=== PATIENT | female | born 2000 | race Caucasian/White ===

== ENCOUNTER 2024-08-28 09:05 | Outpatient (CLI) | payer OTHER, SELFPAY ==
[2024-08-28 09:31] VITALS: BP 139/90; PULSE 83
[2024-08-28 09:38] LABS: Basophils Percent Auto 0.3 % (0.2-1.2); Eosinophils Absolute Auto 0.1 K/mm3 (0-0.3); Hematocrit 38.2 % (37.0-47.0); Hemoglobin 12.2 g/dL (12.0-15.0); Immature Granulocyte Absolute 0.07 K/mm3 (0.00-0.031); Immature Granulocyte Percent A 0.7 % (0-0.5); Lymphocytes Absolute Auto 1.62 K/mm3 (0.9-3.2); Lymphocytes Percent Auto 17.3 % (18.3-44.2); Mean Corpuscular HGB Conc 31.9 g/dl (32-36); Mean Corpuscular Hemoglobin 27.1 pg (26-34); Mean Corpuscular Volume 84.9 fl (80-100); Mean Platelet Volume 11.1 fl (7.4-10.4); Monocytes Absolute Auto 0.6 K/mm3 (0.1-0.6); Monocytes Percent Auto 6.6 % (2.6-8.5); Neutrophils Absolute Auto 6.9 K/mm3 (1.3-6.7); Neutrophils Percent Auto 74.1 % (45.5-73.1); Platelet Count Result 180 k/mm3 (150-375); Red Cell Distribution Width 13.3 % (11.5-14.5); White Blood Count 9.4 K/mm3 (4.5-10.0)
[2024-08-28 09:40] VITALS: BMI 32.0
[2024-08-28 09:46] VITALS: BP 137/88; PULSE 83
[2024-08-28 09:47] LABS: Alanine Aminotransferase 18 U/L (6-35); Albumin Level 3.6 g/dL (3.5-5.1); Alkaline Phosphatase 112 U/L (38-126); Anion Gap 6 mmol/L (4-12); Aspartate Amino Transferase 26 U/L (14-36); Bilirubin,Total 0.2 mg/dL (0.2-1.3); Blood Urea Nitrogen 13 mg/dL (7-17); Calcium 9.3 mg/dL (8.4-10.2); Carbon Dioxide 23 mmol/L (22-30); Chloride 105 mmol/L (98-107); Estimated CRCL calculation 125 ml/min; Estimated Glomerular Filt Rate > 60; Glucose 84 mg/dL (65-110); Sodium 134 mmol/L (137-145); Total Protein 6.4 g/dL (6.3-8.2); Uric Acid 5.4 mg/dL (2.5-7.5)
[2024-08-28 09:48] LABS: Total Protein Urine Random 11 mg/dL; Ur Ttl Prot Creatinine Ratio 0.42 mg/mg (0-0.20)
[2024-08-28 09:55] LABS: Add Urine Microscopic? YES; Appearance Urine Cloudy (Clear); Bacteria Urine 4+ /hpf; Bilirubin Urine Negative (Negative); Blood Urine Negative (Negative); Color Urine Yellow (Yellow); Glucose Urine UA Negative (Negative); Ketones Urine Negative (Negative); Leukocyte Esterase Ur 3+ LEU/UL (Negative); Need Manual Microscopic Reviewed; Nitrate Urine Negative (Negative); Protein Urine Negative (Negative); RBC Urine 0-2 /hpf (0-2); Specific Grav Ur 1.006 (1.001-1.035); Squamous Epithelial Cell Urine Moderate /hpf (Few); Urobilinogen Urine 0.2 mg/dL (<2.0); WBC Urine >100 /hpf (0-3)
[2024-08-28 10:01] VITALS: BP 129/89; PULSE 82
--- NOTE | 2024-08-28 10:22 | PC.NURSE ---
Dr. Snyder returned call. Informed of pt complaining of headache and elevated BP at home. Lab results and BPs given. Reactive tracing. July D/C home. Order culture for UA and bring BP cuff from home to check in office.
== END 2024-08-28 10:28 | disposition home or self-care (01) ==
LOC: ANHOBOP 09:15 → ANHLDR 09:23
PROVIDERS: Visit Provider Obstetrics & Gynecology
DX: O13.9 Gestational [pregnancy-induced] hypertension without significant proteinuria, unspecified trimester (principal); Z3A.00 Weeks of gestation of pregnancy not specified
CPT/HCPCS: 36415; 59025; 80053; 81001; 82570; 84156; 84550; 85025; 87086

== ENCOUNTER 2024-09-04 13:40 | Inpatient (IN) | payer OTHER, SELFPAY ==
[2024-09-04] VITALS (35 sets, daily range): BP systolic 116–160; BP diastolic 60–96; PULSE 70–111; RESP 16–18; TEMP 36.4–37.5; BMI 33.5
[2024-09-04] MEDS: miSOPROStol 25 MCG TABLET 50 MCG BUCCAL (15:49)
[2024-09-04 16:02] LABS: Basophils Percent Auto 0.3 % (0.2-1.2); Eosinophils Absolute Auto 0.1 K/mm3 (0-0.3); Eosinophils Percent Auto 0.6 % (0-4.4); Hematocrit 37.9 % (37.0-47.0); Hemoglobin 12.3 g/dL (12.0-15.0); Immature Granulocyte Percent A 0.8 % (0-0.5); Lymphocytes Absolute Auto 1.78 K/mm3 (0.9-3.2); Lymphocytes Percent Auto 14.4 % (18.3-44.2); Mean Corpuscular HGB Conc 32.5 g/dl (32-36); Mean Corpuscular Hemoglobin 27.2 pg (26-34); Mean Corpuscular Volume 83.8 fl (80-100); Mean Platelet Volume 11.9 fl (7.4-10.4); Monocytes Absolute Auto 0.7 K/mm3 (0.1-0.6); Monocytes Percent Auto 5.3 % (2.6-8.5); Neutrophils Absolute Auto 9.7 K/mm3 (1.3-6.7); Neutrophils Percent Auto 78.6 % (45.5-73.1); Platelet Count Result 197 k/mm3 (150-375); Red Blood Count 4.52 M/mm3 (4.2-5.4); Red Cell Distribution Width 13.9 % (11.5-14.5); White Blood Count 12.4 K/mm3 (4.5-10.0)
[2024-09-04 16:22] LABS: Alanine Aminotransferase 19 U/L (6-35); Albumin Level 3.6 g/dL (3.5-5.1); Alkaline Phosphatase 113 U/L (38-126); Anion Gap 10 mmol/L (4-12); Aspartate Amino Transferase 31 U/L (14-36); Bilirubin,Total 0.2 mg/dL (0.2-1.3); Blood Urea Nitrogen 15 mg/dL (7-17); Calcium 9.1 mg/dL (8.4-10.2); Carbon Dioxide 18 mmol/L (22-30); Chloride 107 mmol/L (98-107); Estimated Glomerular Filt Rate > 60; Glucose 93 mg/dL (65-110); Potassium 4.2 mmol/L (3.4-5.0); Sodium 135 mmol/L (137-145); Total Protein 6.5 g/dL (6.3-8.2); Uric Acid 6.8 mg/dL (2.5-7.5)
--- NOTE | 2024-09-04 16:31 | LDADM ---
This patient, Elida Salomon, was admitted to Labor/Delivery/Recovery 106 on 09/04/24 at 13:40. Plans for labor, pain management and were discussed with patient. Patient/family oriented to hospital policies and general routines including ID bracelet, bed and alarms, visiting hours, pain management, procedures, bathroom and other care routines, personal items, smoking policy, room service/diet and guest tray routines, security routines, and visiting hours. Patient/Family are encouraged to report perceived risks to care and to ask questions if they do not understand what they are told or what they should do. See OBIX for further documentation.
[2024-09-04 16:51] LABS: Syphilis IgG/IgM Antibody Non-Reactive (Nonreactive)
[2024-09-04] MEDS: AMPICILLIN 2 GM/NS 100 ML 2 GM/100 ML BAG IVPB (17:17)
[2024-09-04] MEDS: LACTATED RINGERS 1,000 ML 125 ML IV CONT (17:17)
[2024-09-04] MEDS: OXYTOCIN 30 UNITS/NS 500 ML 30 UNITS/500 ML BAG IV CONT (19:53)
[2024-09-05] VITALS (95 sets, daily range): BP systolic 96–159; BP diastolic 50–111; PULSE 61–175; RESP 16; TEMP 36.1–37; O2SAT 100
[2024-09-05] MEDS: LACTATED RINGERS 1,000 ML 125 ML IV CONT ×3 (01:32→11:38)
--- NOTE | 2024-09-05 09:25 | PM.IMHP ---
H&P: HPI History of Present Illness Date/Time: 09/05/24 09:25 Chief Complaint: gestational hypertension Narrative: Patient is a 24 year old at 37w2d who presented for induction of labor indicated for gestational hypertension. She was diagnosed in the office yesterday. She denies headaches, vision changes, chest pain, dyspnea, RUQ pain or epigastric pain. Labwork on admission was normal. Her blood pressures have been mild range. She received 1 dose of cytotec on admission and since that time has been tolerating pitocin well. Her has been otherwise uncomplicated. Review of Systems Review of Systems: All systems reviewed & are unremarkable except as noted in HPI and below PMFSH Social History Social History Smoking status: Never smoker Substance use: never Do You Feel Safe in your Home?: Yes Lack of Transportation: No Lack of Food: Never True Current Housing: I Have Housing Concerned About Future Housing: No Difficulty Paying Gas/Electric Bills: No Difficulty Paying for Meds: No Currently Unemployed: No Education: Associate Degree Difficulty w/ Childcare or Family Care: No Spiritual care concerns: No Meds Home Medications and Allergies Home Medications ?Medication ?Instructions ?Recorded ?Confirmed ?Type vit no.95-ferrous 1 tablet PO DAILY 09/02/24 09/02/24 History fumarate 28 mg-folic acid 800 mcg tablet () Allergies Allergy/AdvReac Type Severity Reaction Status Date / Time No Known Allergies Allergy Verified 09/05/24 08:55 Vital Signs Vital Signs - 24 hr 09/04/24 14:15 09/04/24 14:30 09/04/24 14:45 Temperature Pulse Rate 106 H 103 H 111 H Respiratory Rate Blood Pressure 142/89 H 128/90 126/95 H Pulse Oximetry Oxygen Delivery 09/04/24 15:00 09/04/24 15:15 09/04/24 15:30 Temperature 98.9 F Pulse Rate 101 H 98 95 Respiratory Rate Blood Pressure 135/91 H 140/96 H 138/88 Pulse Oximetry Oxygen Delivery 09/04/24 15:45 09/04/24 16:00 09/04/24 16:15 Temperature Pulse Rate 96 95 91 Respiratory Rate Blood Pressure 132/87 136/89 130/80 Pulse Oximetry Oxygen Delivery 09/04/24 16:30 09/04/24 16:31 09/04/24 16:45 Temperature Pulse Rate 94 89 Respiratory Rate Blood Pressure 133/90 130/92 H Pulse Oximetry Oxygen Delivery Room Air 09/04/24 17:00 09/04/24 17:15 09/04/24 17:30 Temperature 99.5 F Pulse Rate 89 102 H 92 Respiratory Rate 18 Blood Pressure 130/81 123/73 127/83 Pulse Oximetry Oxygen Delivery 09/04/24 17:45 09/04/24 18:00 09/04/24 18:09 Temperature 97.6 F Pulse Rate 87 91 Respiratory Rate Blood Pressure 135/90 127/80 Pulse Oximetry Oxygen Delivery 09/04/24 20:00 09/04/24 20:22 09/04/24 20:30 Temperature 98 F Pulse Rate 90 88 Respiratory Rate 16 Blood Pressure 151/87 H 145/87 H Pulse Oximetry Oxygen Delivery 09/04/24 20:45 09/04/24 21:03 09/04/24 21:14 Temperature Pulse Rate 91 89 84 Respiratory Rate Blood Pressure 153/85 H 146/69 H 139/71 Pulse Oximetry Oxygen Delivery 09/04/24 21:31 09/04/24 21:46 09/04/24 21:56 Temperature Pulse Rate 84 81 81 Respiratory Rate Blood Pressure 143/82 H 144/78 H 137/93 H Pulse Oximetry Oxygen Delivery 09/04/24 22:01 09/04/24 22:16 09/04/24 22:23 Temperature 99.1 F Pulse Rate 86 87 Respiratory Rate Blood Pressure 134/86 128/80 Pulse Oximetry Oxygen Delivery 09/04/24 22:45 09/04/24 23:00 09/04/24 23:09 Temperature 97.9 F Pulse Rate 70 72 Respiratory Rate Blood Pressure 116/68 117/76 Pulse Oximetry Oxygen Delivery 09/04/24 23:15 09/04/24 23:30 09/04/24 23:45 Temperature Pulse Rate 79 92 76 Respiratory Rate Blood Pressure 160/85 H 117/60 Pulse Oximetry Oxygen Delivery 09/05/24 00:10 09/05/24 00:15 09/05/24 00:30 Temperature Pulse Rate 77 76 77 Respiratory Rate Blood Pressure 141/77 H 146/89 H 124/75 Pulse Oximetry Oxygen Delivery 09/05/24 00:45 09/05/24 01:00 09/05/24 01:45 Temperature Pulse Rate 80 68 77 Respiratory Rate Blood Pressure 126/80 124/77 125/99 H Pulse Oximetry Oxygen Delivery 09/05/24 02:15 09/05/24 02:30 09/05/24 02:46 Temperature Pulse Rate 73 75 69 Respiratory Rate Blood Pressure 143/80 H 130/85 135/90 Pulse Oximetry Oxygen Delivery 09/05/24 03:00 09/05/24 03:11 09/05/24 03:15 Temperature 98 F Pulse Rate 74 66 Respiratory Rate Blood Pressure 130/75 127/66 Pulse Oximetry Oxygen Delivery 09/05/24 03:30 09/05/24 03:45 09/05/24 04:00 Temperature Pulse Rate 61 85 86 Respiratory Rate Blood Pressure 119/52 L 127/67 117/69 Pulse Oximetry Oxygen Delivery 09/05/24 04:15 09/05/24 04:30 09/05/24 04:44 Temperature Pulse Rate 86 79 74 Respiratory Rate Blood Pressure 147/97 H 159/97 H 142/77 H Pulse Oximetry Oxygen Delivery 09/05/24 05:00 09/05/24 05:15 09/05/24 05:30 Temperature Pulse Rate 72 86 97 Respiratory Rate Blood Pressure 143/82 H 136/83 130/91 H Pulse Oximetry Oxygen Delivery 09/05/24 06:00 09/05/24 06:30 09/05/24 06:45 Temperature 97 F L Pulse Rate 82 90 85 Respiratory Rate Blood Pressure 120/69 141/95 H 140/86 Pulse Oximetry Oxygen Delivery 09/05/24 06:47 09/05/24 07:00 09/05/24 07:15 Temperature 97.4 F L Pulse Rate 87 91 Respiratory Rate Blood Pressure 146/89 H 147/81 H Pulse Oximetry Oxygen Delivery 09/05/24 07:30 09/05/24 07:45 09/05/24 08:00 Temperature Pulse Rate 90 86 100 Respiratory Rate Blood Pressure 159/86 H 144/85 H 121/94 H Pulse Oximetry Oxygen Delivery 09/05/24 08:15 09/05/24 08:30 09/05/24 08:45 Temperature Pulse Rate 78 84 Respiratory Rate Blood Pressure 137/88 133/77 136/71 Pulse Oximetry Oxygen Delivery 09/05/24 09:00 09/05/24 09:15 09/05/24 09:20 Temperature Pulse Rate 97 Respiratory Rate Blood Pressure 96/50 L Pulse Oximetry 100 100 Oxygen Delivery 09/05/24 09:22 09/05/24 09:24 09/05/24 09:25 Temperature Pulse Rate 99 94 Respiratory Rate Blood Pressure 120/79 122/79 Pulse Oximetry 100 Oxygen Delivery Exam Const: General: comfortable and no acute distress Eyes: General: appearance normal, both eyes and all related structures Resp: Effort & Inspection: normal respiratory effort Cardio: Rate: regular rate Rhythm: regular rhythm : Other: SVE , AROM with large amount of clear fluid Skin: General skin exam: normal color Extrem: General: normal to inspection Psych: Mental Status: mental status grossly normal H&P: Results Labs Labs: Short CBC 09/04/24 Range/Units 15:53 WBC 12.4 H (4.5-10.0) K/mm3 Hgb 12.3 (12.0-15.0) g/dL Hct 37.9 (37.0-47.0) % Plt Count 197 (150-375) k/mm3 BMP 09/04/24 15:53 Sodium 135 L Potassium 4.2 Chloride 107 Carbon Dioxide 18 L BUN 15 Creatinine 0.74 Glucose 93 Calcium 9.1 Liver Function 09/04/24 Range/Units 15:53 Total Bilirubin 0.2 (0.2-1.3) mg/dL AST 31 (14-36) U/L ALT 19 (6-35) U/L Alkaline Phosphatase 113 (38-126) U/L Albumin 3.6 (3.5-5.1) g/dL Assessment and Plan Assessment and plan (1) Gestational hypertension: Code(s): O13.9 - Gestational [-induced] hypertension without significant proteinuria, unspecified trimester Status: Acute Assessment and Plan: - asymptomatic - BP mild range since admission - labs wnl - will continue to monitor closely for signs of preeclampsia with severe features - IOL: s/p cytotec x1, pitocin per protocol, AROM of clear fluid - SVE /-1 - FHR category I
--- NOTE | 2024-09-05 13:30 | WPDANESEPPF ---
Anes - Initial Pre Proc Eval Procedure: labor epidural Date/Time: 09/05/24 13:30 Surgeon: Sung Snyder MD Pre Op Diagnosis: labor pain Pre Op Diagnosis: IOL Patient Data Age: 24 Gender: F Height: 1.73 m Weight: 100 kg Last Vital Signs Temp 36.1 C L 09/05/24 12:15 Pulse 113 H 09/05/24 13:10 Resp 16 09/04/24 20:00 BP 99/50 L 09/05/24 13:10 Pulse Ox 100 09/05/24 10:05 O2 Del Method Room Air 09/04/24 16:31 Allergies Allergy/AdvReac Type Severity Reaction Status Date / Time No Known Allergies Allergy Verified 09/05/24 08:55 Home Medications ?Medication ?Instructions ?Recorded ?Confirmed ?Type vit no.95-ferrous 1 tablet PO DAILY 09/02/24 09/02/24 History fumarate 28 mg-folic acid 800 mcg tablet () Laboratory Tests 09/04/24 09/04/24 15:53 15:53 WBC 12.4 H K/mm3 (4.5-10.0) RBC 4.52 M/mm3 (4.2-5.4) Hgb 12.3 g/dL (12.0-15.0) Hct 37.9 % (37.0-47.0) MCV 83.8 fl (80-100) MCH 27.2 pg (26-34) MCHC 32.5 g/dl (32-36) RDW 13.9 % (11.5-14.5) Plt Count 197 k/mm3 (150-375) MPV 11.9 H fl (7.4-10.4) Immature Gran % (Auto) 0.8 H % (0-0.5) Neut % (Auto) 78.6 H % (45.5-73.1) Lymph % (Auto) 14.4 L % (18.3-44.2) Peach % (Auto) 5.3 % (2.6-8.5) Eos % (Auto) 0.6 % (0-4.4) Baso % (Auto) 0.3 % (0.2-1.2) Lymph # (Auto) 1.78 K/mm3 (0.9-3.2) Peach # (Auto) 0.7 H K/mm3 (0.1-0.6) Eos # (Auto) 0.1 K/mm3 (0-0.3) Baso # (Auto) 0.0 K/mm3 (0.0-0.1) Abs Immat Gran (auto) 0.10 H K/mm3 (0.00-0.031) Absolute Neuts (auto) 9.7 H K/mm3 (1.3-6.7) Absolute Nucleated RBC 0.000 K/mm3 (0.0-0.012) Nucleated RBC % 0.0 % (0.0-0.2) Sodium 135 L mmol/L (137-145) Potassium 4.2 mmol/L (3.4-5.0) Chloride 107 mmol/L (98-107) Carbon Dioxide 18 L mmol/L (22-30) Anion Gap 10 mmol/L (4-12) BUN 15 mg/dL (7-17) Creatinine 0.74 mg/dL (0.7-1.0) Estim Creat Clear Calc Not Reportable Estimated GFR > 60 (59 - ) Glucose 93 mg/dL (65-110) Uric Acid Cancelled 6.8 mg/dL (2.5-7.5) Calcium 9.1 mg/dL (8.4-10.2) Total Bilirubin 0.2 mg/dL (0.2-1.3) AST 31 U/L (14-36) ALT 19 U/L (6-35) Alkaline Phosphatase 113 U/L (38-126) Total Protein 6.5 g/dL (6.3-8.2) Albumin 3.6 g/dL (3.5-5.1) Syphilis IgG/IgM Ab Non-reactive (Nonreactive) Blood Type A Positive Antibody Screen Negative Patient hx anesthesia problems: none Family hx anesthesia problems: none Results Review: All pre-operative results and documents have been reviewed as part of the pre-operative evaluation. [facility] Social History Social History Smoking status: Never smoker Substance use: never Do You Feel Safe in your Home?: Yes Lack of Transportation: No Lack of Food: Never True Current Housing: I Have Housing Concerned About Future Housing: No Difficulty Paying Gas/Electric Bills: No Difficulty Paying for Meds: No Currently Unemployed: No Education: Associate Degree Difficulty w/ Childcare or Family Care: No Spiritual care concerns: No Anes - Eval Final PreProcedure Day of Procedure 09/05/24 13:30 Patient weight: obese ASA classification: III Anesthetic plan: proceed Anesthesia type and monitoring: regional epidural and standard monitoring Results Review: All pre-operative results and documents have been reviewed as part of the pre-operative evaluation. Informed Consent: The patient's anesthetic plan and its attendant risks and benefits were discussed with the patient/family/POA. Questions were solicited and answers provided to the satisfaction of the patient/family/POA.
[2024-09-05] MEDS: FAMOTIDINE 20 MG/2 ML VIAL IV PUSH (14:48)
--- NOTE | 2024-09-05 20:03 | PM.OBPRVD ---
OB - Vaginal Delivery Note Procedure Delivery date: 09/05/24 Intrapartal Events: Arrest of Descent and Ineffetive Pushing/Maternal Exhaustion Induction method: AROM, Per Misoprostol Protocol and Per Pitocin Protocol Delivery monitor: External FHT and Internal Uterine Route of delivery: Indication for instrumentation: other (Failure to descend) Episiotomy description: None Laceration Description: Vaginal (Second-degree) Delivery repair: vicryl Quantitative Blood Loss (ml): 300 Anesthesia type: Epidural Disposition: Floor Complications: No immediate complications Narrative: Kiwi vacuum was used, station +4, 3 pulls over 3 contractions, total application time of the vacuum was 7 minutes. Indication was maternal exhaustion and failure to descend. position was right occiput posterior.
[2024-09-05] MEDS: OXYTOCIN 30 UNITS/NS 500 ML 30 UNITS/500 ML BAG 125 UNITS IV CONT (20:05)
[2024-09-05] MEDS: ACETAMINOPHEN 325 MG TABLET 650 MG PO (20:48)
[2024-09-05] MEDS: KETOROLAC 15 MG/ML VIAL (*BKC) IV PUSH (21:16)
[2024-09-05] MEDS: HYDROcodone/acetaminophen (*CRX) 5-325 MG TABLET 1 TAB PO (21:16)
[2024-09-05] MEDS: HYDROmorphone HCL INJ (*CRX) 1 MG/ML SYR (22:05)
[2024-09-05] MEDS: BENZOCAINE 20% AER SPR (*SP) 56 GM CAN 1 SPRAY TOPICAL (22:07)
[2024-09-05] MEDS: WITCH HAZEL 40 PADS 1 PAD TOPICAL (22:07)
--- NOTE | 2024-09-05 23:01 | OBPPTRN ---
Patient transferred to post room #283 via [facility]. Support person present. Oriented to unit, room, information board, rooming in, admission packet and security measures. Patient verbalizes understanding.
[2024-09-06 04:00] VITALS: BP 119/73; PULSE 96; RESP 18; TEMP 36.7; O2SAT 99
[2024-09-06 04:51] LABS: Hematocrit 31.3 % (37.0-47.0); Hemoglobin 10.1 g/dL (12.0-15.0)
[2024-09-06] MEDS: ACETAMINOPHEN 325 MG TABLET 650 MG PO (07:05)
[2024-09-06] MEDS: IBUPROFEN 600 MG TABLET PO ×3 (07:06→21:42)
[2024-09-06] MEDS: MULTIVIT/MIN/PREN/FOL AC/IRON TABLET 1 TAB PO (07:06)
[2024-09-06] MEDS: DOCUSATE SODIUM 100 MG CAPSULE PO ×2 (07:07→16:11)
--- NOTE | 2024-09-06 07:10 | PC.NURSE ---
Due to Pt's Gestational Hypertension- I/O sheet added to pt's bathroom as well as hat in toilet to measure voids. Education given on measuring intake and output throughout hospital stay and pt verbalized understanding
[2024-09-06 08:05] VITALS: BP 134/83; PULSE 93; RESP 16; TEMP 37; O2SAT 99
--- NOTE | 2024-09-06 09:40 | PC.NURSE ---
Introductions were made, then consulted with patient to assess needs related to . Mother led the conversation with her?plans to feed?her infant and the?experience so far. Mother states that she does not currently have any questions or concerns. Mother states that is nursing well and denies pain while . Communication board updated with contact information in case questions arise. Mother encouraged to call RN to assess latch today.
[2024-09-06] MEDS: HYDROcodone/acetaminophen (*CRX) 5-325 MG TABLET 1 TAB PO ×2 (10:40→21:42)
--- NOTE | 2024-09-06 10:41 | P.PNOB_ITS ---
OB - PN: Subj Subjective Date/time seen: 09/06/24 10:41 Interval history: PPD#1 s/p VAVD Doing well, pain overall controlled Voiding without issue , working on latching Asymptomatic from preeclampsia symptoms OB - PN: Obj Data Labs 09/06/24 04:05 09/04/24 15:53 Labs: Laboratory Results - last 24 hr 09/06/24 04:05 Hgb 10.1 L Hct 31.3 L OB - PN A/P Assessment and Plan (1) Gestational hypertension: Code(s): O13.9 - Gestational [-induced] hypertension without significant proteinuria, unspecified trimester Status: Acute Assessment and Plan: - asymptomatic - BP overall wnl - labs wnl - continue to monitor closely for signs of preeclampsia (2) Vacuum-assisted vaginal delivery: Code(s): Z37.9 - Outcome of delivery, unspecified Status: Acute Plan day: 1 Plan: routine care Time Spent With Patient Time: Total time spent is greater than 50% in coordination of care (as documented) at patient's floor/unit and/or counseling patient: Review of Systems 2 Review of Systems: All systems reviewed & are unremarkable except as noted in HPI and below Exam 2 Const: General: comfortable and no acute distress O rientation/consciousness: patient oriented x3 Resp: Effort & Inspection: normal respiratory effort
[2024-09-06 12:00] VITALS: BP 119/82; PULSE 87; RESP 16; TEMP 37.1; O2SAT 97
[2024-09-06 16:11] VITALS: BP 144/96; PULSE 87; RESP 18; TEMP 36.4; O2SAT 100
[2024-09-06 20:24] VITALS: BP 133/90; PULSE 85; RESP 18; TEMP 36.9; O2SAT 99
[2024-09-07 00:15] VITALS: BP 118/69
[2024-09-07 04:00] VITALS: BP 124/85; PULSE 83; RESP 18; O2SAT 98
[2024-09-07] MEDS: WITCH HAZEL 40 PADS 1 PAD TOPICAL (04:57)
[2024-09-07] MEDS: IBUPROFEN 600 MG TABLET PO (04:57)
[2024-09-07] MEDS: MULTIVIT/MIN/PREN/FOL AC/IRON TABLET 1 TAB PO (07:15)
[2024-09-07] MEDS: DOCUSATE SODIUM 100 MG CAPSULE PO (07:15)
[2024-09-07 07:45] VITALS: BP 120/64; PULSE 80; RESP 16; TEMP 37.1; O2SAT 98
--- NOTE | 2024-09-07 08:05 | PC.NURSE ---
Consulted with mother concerning needs and she shared her ability to independently latch infant optimally without pain. Mother is feeding appropriately for growth of and understands stimulating to eat if needed. Infant has had appropriate feedings in the last 24 hours meets the outcomes for weight, output, blood sugar and jaundice at this time. Reinforced understanding of milk production, transition of milk, signs of adequate intake, transition of stool, prevention/relief of engorgement, plugged ducts, mastitis, responsive watching for feeding cues, the different methods of stimulating to breastfeed 1-3 hours after the start of the last feeding, community resources, and when to call a provider using the resource of the feeding sheet along with the mom and baby guide. Mother voiced understanding of the information shared, is confident to continue effectively her infant at home, when to call for assistance, denies any additional assistance or education at this time. Reported to the Primary RN.
--- NOTE | 2024-09-07 08:24 | P.PNOB_ITS ---
OB - PN: Subj Subjective Date/time seen: 09/07/24 08:24 Interval history: PPD#1 s/p VAVD Doing well, pain overall controlled Voiding without issue , working on latching Asymptomatic from preeclampsia symptoms Patient comments: no complaints, pain well controlled and tolerating diet OB - PN: Obj Data Labs 09/06/24 04:05 09/04/24 15:53 OB - PN A/P Plan day: 2 Plan: routine care and discharge home Time Spent With Patient Time: Total time spent is greater than 50% in coordination of care (as documented) at patient's floor/unit and/or counseling patient: Exam 2 Const: General: comfortable and no acute distress Resp: Effort & Inspection: normal respiratory effort Auscultation: no rales, no rhonchi and no wheezes Cardio: Rate: regular rate Heart sounds: no click, no murmurs and no rubs GI: GI Palp: Yes Soft to palpation and No Tenderness to palpation present (GI) Auscultation: normal bowel sounds Extrem: General: normal to inspection, no pedal edema and no calf tenderness
--- NOTE | 2024-09-07 08:24 | PM.OBDSVD ---
DS: Admitting Diagnosis Discharge Date 08/18/2024 Admitting Diagnosis Term DS: Discharge Diagnosis Discharge Diagnosis (1) Term delivered: Code(s): O80 - Encounter for full-term uncomplicated delivery Status: Acute OB - DS: Summary OB Procedures : None OB Procedures Intrapartum: Spontaneous Vag Delivery OB Procedures: : None Peripartum Data Laceration Description: Vaginal (Second-degree) Episiotomy description: None Time Spent with Patient Time attestation: Total time spent providing and/or coordinating discharge services: Discharge Plan Discharge Discharging Clinician: Henok Garcia Patient Disposition: Home Activity: pelvic rest Diet: regular Patient Instructions: Antibiotic Form Patient Language: Icelandic Stand Alone Forms: General Discharge Information Follow-up/Referrals: Henok Garcia MD [Physician] - Discharge Medications: Continued PNV cmb#95-ferrous fumarate-FA [] 28 mg iron- 800 mcg tablet 1 tablet PO DAILY Date of admission: 09/04/24 13:40 Primary Care Provider: PHYSICIAN NOT ON STAFF,NONSTAFF Admitting Provider: Sung Snyder Attending physician on admission: Sung Snyder Condition: Stable
[2024-09-08 09:27] VITALS: BP 121/81; PULSE 81; RESP 18; TEMP 36.9; O2SAT 100
== END 2024-09-07 11:32 | disposition home or self-care (01) | DRG 807 ==
LOC: ANHOB2 09-07 08:26 → ANHLDR 09-08 10:51 → ANHOB2 09-08 10:51
PROVIDERS: Admitting Provider Obstetrics & Gynecology; Visit Provider Obstetrics & Gynecology
DX: O62.1 Secondary uterine inertia (principal); Z37.0 Single live birth; O13.4 Gestational [pregnancy-induced] hypertension without significant proteinuria, complicating childbirth; O70.1 Second degree perineal laceration during delivery; O69.81X0 Labor and delivery complicated by cord around neck, without compression, not applicable or unspecified; Z3A.37 37 weeks gestation of pregnancy
CPT/HCPCS: 36415; 80053; 84550; 85014; 85018; 85025; 86593; 86850; 86900; 86901; A9270; J0290; J1171; J1885; J2590; J2795; J7120